=== PATIENT | female | born 1960 | race African-American/Black ===

== ENCOUNTER 2017-11-17 10:14 | Outpatient (CLI) | payer BC ==
[2017-11-17 11:14] LABS: Hemoglobin A1c 5.3 % (4.0-6.0)
== END 2017-11-17 10:15 | disposition home or self-care (01) ==
LOC: LABBT 10:14
PROVIDERS: ATTEND Specialist
DX: Z01.818 Encounter for other preprocedural examination (principal); E66.01 Morbid (severe) obesity due to excess calories
CPT/HCPCS: 83036

== ENCOUNTER 2017-11-23 05:51 | Inpatient (IN) | payer BC ==
[2017-11-23] MEDS ORDERED: Heparin 5,000 UNITS/ML VIAL ONE (06:15)
[2017-11-23] MEDS ORDERED: Ketorolac Tromethamine 30 MG/ML VIAL ONE (06:15)
[2017-11-23] MEDS ORDERED: Scopolamine 1.5 mg/72 hour Patch ONE (06:16)
[2017-11-23] MEDS ORDERED: cefOXitin 2 GM in Syringe 10 ML SLOW IVP SCH (06:30)
[2017-11-23] MEDS ORDERED: Bupivacaine/Epinephrine 0.25% 30 ML VIAL ONE (06:42)
[2017-11-23] MEDS ORDERED: Fentanyl 250 MCG/5 ML VIAL ONE (06:46)
[2017-11-23 07:03] LABS: Albumin 4.1 g/dL (3.5-5.0)
[2017-11-23] MEDS ORDERED: Midazolam HCl 2 mg/2 ml Vial ONE (07:23)
[2017-11-23] MEDS ORDERED: Fentanyl 100 MCG/2 ML VIAL ONE (09:56)
[2017-11-23] MEDS ORDERED: Morphine 4 MG/ML VIAL SLOW IVP PRN (10:54)
[2017-11-23] MEDS ORDERED: diphenhydrAMINE 50 MG/ML VIAL IVP PRN (10:54)
[2017-11-23] MEDS ORDERED: Dextrose 50% Abboject 50 ML SYRINGE SLOW IVP PRN (10:54)
[2017-11-23] MEDS ORDERED: Ondansetron HCl/PF 4 MG/2 ML Vial IVP PRN (10:54)
[2017-11-23] MEDS ORDERED: Dextrose 5% in Water 1,000 ML IV PRN (10:54)
[2017-11-23] MEDS ORDERED: hydrALAZINE 20 MG/ML VIAL SLOW IVP PRN (10:54)
[2017-11-23] MEDS ORDERED: Promethazine HCl 25 MG/ML VIAL IM PRN (10:54)
[2017-11-23] MEDS ORDERED: Morphine 4 MG/ML VIAL ONE (11:30)
[2017-11-23] MEDS: D5 1/2 NS w/20 mEq KCL 1,000 ML IV SCH ×3 (12:54→22:01)
[2017-11-23] MEDS: Ketorolac Tromethamine 30 MG/ML VIAL IVP SCH ×3 (12:54→23:32)
[2017-11-23] MEDS: Morphine 4 MG/ML VIAL SLOW IVP PRN ×4 (13:36→22:03)
[2017-11-23] MEDS ORDERED: Dexamethasone 20 MG/5 ML VIAL ONE (14:02)
[2017-11-23] MEDS ORDERED: Propofol 200 MG/20 ML VIAL ONE (14:02)
[2017-11-23] MEDS ORDERED: Lidocaine 1% PF 5 ML VIAL ONE (14:02)
[2017-11-23] MEDS ORDERED: Ondansetron HCl/PF 4 MG/2 ML Vial ONE (14:02)
[2017-11-23] MEDS ORDERED: Glycopyrrolate 0.2 MG/ML 5 ML SYRINGE ONE (14:02)
[2017-11-23] MEDS ORDERED: Metoprolol Tartrate 5 MG/5 ML VIAL ONE (14:02)
[2017-11-23] MEDS ORDERED: PHENYLEPHRINE-NS 100 MCG/ML 10 ML SYRINGE ONE (14:02)
[2017-11-23] MEDS: Meperidine HCl/PF 25 MG/ML VIAL SLOW IVP PRN ×2 (14:58→18:09)
[2017-11-23 19:55] VITALS: BMI 38.9
[2017-11-23] MEDS ORDERED: Enoxaparin Sodium 40 MG/0.4 ML SYRINGE SC SCH (21:00)
[2017-11-24] MEDS: Morphine 4 MG/ML VIAL SLOW IVP PRN (04:09)
[2017-11-24 06:04] LABS: Anion Gap 9 mmol/L (10-20); BUN (Urea Nitrogen) 11 mg/dL (9.8-20.1); Calc. Creatinine Clearance 100 mL/min (70-130); Calcium 8.8 mg/dL (7.8-10.44); Carbon Dioxide 27 mmol/L (22-29); Chloride 109 mmol/L (98-107); Eosinophils 1 % (0-10); Estimated GFR-MDRD 70; Glucose 111 mg/dL (70-105); Lymphocytes 23 % (21-51); MDiff Complete? YES; Mean Corpuscular HGB CONC 33.4 g/dL (32.0-36.0); Mean Corpuscular Hemoglobin 30.8 pg (27.0-31.0); Mean Corpuscular Volume 92.2 fl (81.0-99.0); Monocytes 6 % (0-10); Neutrophil 68 % (42-75); PLT Morphology Comment Appears Adequate; Platelet Count 207 thou/uL (130-400); Potassium 4.7 mmol/L (3.5-5.1); RBC Distribution Width 11.5 % (11.5-14.5); Red Blood Cell (RBC) Count 3.23 mill/uL (4.20-5.40); Sodium 140 mmol/L (136-145)
[2017-11-24] MEDS: Ketorolac Tromethamine 30 MG/ML VIAL IVP SCH ×2 (06:17→12:30)
[2017-11-24] MEDS ORDERED: Pantoprazole 40 MG VIAL IVP SCH (09:00)
[2017-11-24] MEDS ORDERED: Amlodipine 5 mg/Benazepril 10 mg CAP PO SCH (09:00)
[2017-11-24] MEDS: Hydrocodone-Acetamin 15 ML UDCUP PO PRN ×2 (09:42→15:43)
--- NOTE | 2017-11-24 10:47 | RAD ---
SINGLE CONTRAST LIMITED UPPER GI WITH 15 ML ORAL GASTROGRAFIN: HISTORY: Post bariatric surgery (gastric bypass). FINDINGS: There is prompt passage of contrast from the esophagus into the loops of jejunum. No contrast extrav asation is seen. IMPRESSION: No evidence of obstruction or leak. POS: SHERYL
[2017-11-24 12:21] VITALS: BP 92/61; TEMP 98.6
[2017-11-24] MEDS: D5 1/2 NS w/20 mEq KCL 1,000 ML IV SCH (12:34)
[2017-11-24] MEDS ORDERED: Iopamidol 300 61% 30 ML VIAL ONE (16:58)
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
== END 2017-11-24 15:00 | disposition home or self-care (01) | DRG 621 ==
LOC: SDC 05:51 → SJJU 10:50
PROVIDERS: ADMIT Specialist; ATTEND Specialist
PROC: 0DB64Z3 Excision of Stomach, Percutaneous Endoscopic Approach, Vertical (ICD-10-PCS; principal; 2017-11-23)
DX: E66.01 Morbid (severe) obesity due to excess calories (principal); I10 Essential (primary) hypertension; Z98.84 Bariatric surgery status; Z68.41 Body mass index [BMI] 40.0-44.9, adult
CPT/HCPCS: 36415; 74241; 80048; 82040; 82565; 85014; 85025; C9113; J0131; J0694; J1100; J1644; J1650; J1885; J2001; J2175; J2250; J2270; J2405; J2704; J3010